=== PATIENT | female | born 1995 | race Caucasian/White ===

== ENCOUNTER 2020-02-22 08:32 | Emergency (ER) | payer OTHER, SELFPAY ==
[2020-02-22 08:37] VITALS: BP 126/75; PULSE 98; RESP 20; TEMP 36.6; O2SAT 100
--- NOTE | 2020-02-22 08:48 | ED.GENADULT ---
HPI - General Adult General Stated complaint: stomach pains/vomitting/diarrhea Time Seen by Provider: 02/22/20 08:48 Source: patient Mode of arrival: ambulatory Limitations: no limitations History of Present Illness HPI narrative: 24-year-old female patient presents to the [facility] with complaints of nausea, vomiting, diarrhea and abdominal pain that started abruptly last night. Patient states that she was running a fever last night at 100.3. Patient states that she took Tylenol and the fever went away. Patient states she has not been able to hold anything down since yesterday afternoon. Patient denies any chest pain or shortness of breath at this time. Patient states that she did recently deliver a baby vaginally about 1 month ago. Patient denies any complications with this. Patient unable to provide urine sample at this time. Related Data Allergies Allergy/AdvReac Type Severity Reaction Status Date / Time No Known Allergies Allergy Verified 08/14/19 18:36 Review of Systems Review of Systems: Narrative: CONSTITUTIONAL: Positive low-grade fever, denies chills, or sweats. EYES: Denies visual changes, redness, or discharge. ENT: Denies rhinorrhea, congestion, sore throat, or otalgia. CARDIOVASCULAR: Denies chest pain, palpitations, or edema. RESPIRATORY: Denies cough or dyspnea. GASTROINTESTINAL: Positive abdominal pain, nausea, vomiting, and diarrhea. GENITOURINARY: Denies dysuria or hematuria. SKIN: Denies rash or itching. MUSCULOSKELETAL: Denies back pain, joint pain, or myalgia. NEUROLOGIC: Denies headache, numbness, or weakness. PSYCHIATRIC: Denies anxiety or depression. [facility] Social History Social History Gender identity (if verbalized by the patient): Female Exam Narrative: Exam Narrative: GENERAL: Well-appearing, well-nourished, and in no acute distress. HEAD: Normocephalic, atraumatic. EYES: PERRLA and EOMI. ENT: Nares clear, no rhinorrhea or epistaxis. Mucous membranes moist. Mucous membranes appear pale. NECK: Supple. No lymphadenopathy CHEST: Clear to auscultation. No respiratory distress. HEART: Regular rate and rhythm. No murmur heard. Normal peripheral pulses. ABDOMEN: Soft, flat, nondistended. No guarding, rebound tenderness, or rigid. Patient has tenderness noted to the left lower quadrant on palpation. No pulsatilla masses. Decrease bowel sounds present in all four quadrants. No organomegaly. Negative Coe?s sign. No periumbicial tenderness. No Supra public tenderness or distension. Good femoral pulses bilaterally. No hernia noted. No scars or surface trauma. EXTREMITIES: Normal range of motion. No edema. SKIN: Warm, dry, no rash. NEURO: No focal deficits. Alert and oriented x3. Course Vital Signs Vital signs: Vital Signs Temperature 36.6 C 02/22/20 08:37 Pulse Rate 98 02/22/20 08:37 Respiratory Rate 20 02/22/20 08:37 Blood Pressure 126/75 02/22/20 08:37 Pulse Oximetry 100 02/22/20 08:37 Temperature 36.6 C 02/22/20 08:37 Pulse Rate 98 02/22/20 08:37 Respiratory Rate 20 02/22/20 08:37 Blood Pressure 126/75 02/22/20 08:37 Pulse Oximetry 100 02/22/20 08:37 Vital signs reviewed. Transfer Transfered to: [facility] [place] Transportation: Other (Private vehicle) Transfer rationale: Left lower quadrant abdominal pain, nausea, vomiting and diarrhea Accepting physician: Dr. Villalba Transfer comments: Called and spoke with Dr. Villalba at [facility] emergency department and gave her report on patient that we are sending over with left lower quadrant abdominal pain with nausea, vomiting, diarrhea that started yesterday. Patient reports low-grade fever yesterday currently afebrile. Patient did have a baby about 1 month ago vaginally with no complications. Dr. Kwan is aware the patient and accepts patient at this time. Medical Decision Making Differential Diagnosis Differential Diagnosis: Differen
== END 2020-02-22 09:00 | disposition short-term general hospital (02) ==
PROVIDERS: Emergency Provider Nurse Practitioner Family
DX: R10.32 Left lower quadrant pain (principal); R11.2 Nausea with vomiting, unspecified; R19.7 Diarrhea, unspecified
CPT/HCPCS: 99212; G0463

== ENCOUNTER 2020-07-04 12:53 | Emergency (ER) | payer OTHER, SELFPAY ==
[2020-07-04 12:58] VITALS: BP 133/91; PULSE 104; RESP 14; TEMP 37.6; O2SAT 100
[2020-07-04 13:05] VITALS: BP 133/91; PULSE 104; RESP 14; TEMP 37.6; O2SAT 100
--- NOTE | 2020-07-04 13:12 | ED.URI ---
HPI - URI/Sore Throat General Chief Complaint: Upper Respiratory Infection Stated Complaint: headache/sinus congestion Source: patient Mode of arrival: ambulatory Limitations: no limitations History of Present Illness HPI Narrative: Patient is a 24-year-old female who presents complaining of headache sinus congestion and pressure x1 and half weeks. She denies other symptoms. She denies known Covid exposure. She denies taking [id number] meds for relief. Related Data Home Medications Medication Instructions Recorded Confirmed [id number] 1 tablet PO DAILY 07/04/20 07/04/20 [] Allergies Allergy/AdvReac Type Severity Reaction Status Date / Time No Known Allergies Allergy Verified 07/04/20 13:03 Review of Systems Review of Systems: Narrative: CONSTITUTIONAL: Denies fever, chills, or sweats. EYES: Denies visual changes, redness, or discharge. ENT: Denies rhinorrhea, reports congestion, sinus pressure and headache CARDIOVASCULAR: Denies chest pain, palpitations, or edema. RESPIRATORY: Denies cough or dyspnea. GASTROINTESTINAL: Denies abdominal pain, nausea, vomiting, or diarrhea. GENITOURINARY: Denies dysuria or hematuria. SKIN: Denies rash or itching. MUSCULOSKELETAL: Denies back pain, joint pain, or myalgia. NEUROLOGIC: Denies numbness, dizziness, or weakness. PSYCHIATRIC: Denies anxiety or depression. [facility] Surgical History Surgical History History of placement of ear tubes S/P tympanostomy tube placement Social History Social History (Updated 07/04/20 @ 13:20 by EMI [place]) Smoking status: Former smoker Tobacco type: cigarettes Gender identity (if verbalized by the patient): Female Exam Narrative: Exam Narrative: GENERAL: Well-appearing, well-nourished, and in no acute distress. HEAD: Normocephalic, atraumatic. EYES: No redness or drainage. Conjunctiva are normal. ENT: Mucous membranes pink and moist. Nares clear. No rhinorrhea. TMs normal bilaterally. Throat normal. Uvula midline. Maxillary sinus tenderness with palpation NECK: AROM. Supple. No lymphadenopathy. CHEST: No respiratory distress. EXTREMITIES: Normal range of motion. SKIN: Warm, dry, no rash. NEURO: No focal deficits. Alert and oriented x3. Gait steady. PSYCH: Normal affect. No signs of depression or anxiety. Course Vital Signs Vital signs: Vital Signs Temperature 37.6 C 07/04/20 12:58 Pulse Rate 104 H 07/04/20 12:58 Respiratory Rate 14 07/04/20 12:58 Blood Pressure 133/91 H 07/04/20 12:58 Pulse Oximetry 100 07/04/20 12:58 Temperature 37.6 C 07/04/20 13:05 Pulse Rate 104 H 07/04/20 13:05 Respiratory Rate 14 07/04/20 13:05 Blood Pressure 133/91 H 07/04/20 13:05 Pulse Oximetry 100 07/04/20 13:05 Reviewed. Patient has been instructed to follow-up with her PCP regarding her blood pressure. MDM - URI/Sore Throat MDM Narrative Medical decision making narrative: Patient most likely has sinusitis. Patient to be started on Augmentin at this time. Patient also requesting Covid testing due to employment. Covid testing order sent. Patient is stable for discharge to home with outpatient follow-up as needed. Differential Diagnosis Differential diagnosis: Likely upper respiratory infection, sinusitis, viral infection, bronchitis and influenza Critical Care Time Critical Care Time Critical Care Time: No Discharge Plan Discharge Clinical Impression: Sinusitis Qualifiers: Sinusitis location: maxillary Chronicity: unspecified Qualified Code(s): J32.0 - Chronic maxillary sinusitis Patient Disposition: Home, Self-Care Condition: Stable Instructions: Antibiotic Form, Sinusitis (ED) Additional Instructions: Take antibiotics as directed. [facility] will also be calling you for Covid testing. Please quarantine as discussed. If you have chest pain, shortness of breath or increasin
== END 2020-07-04 13:39 | disposition home or self-care (01) ==
PROVIDERS: Emergency Provider Nurse Practitioner
DX: J32.0 Chronic maxillary sinusitis (principal); Z20.828 Contact with and (suspected) exposure to other viral communicable diseases; Z87.891 Personal history of nicotine dependence
CPT/HCPCS: 99213; G0463

== ENCOUNTER 2021-01-02 14:29 | Emergency (ER) | payer OTHER, SELFPAY ==
--- NOTE | ~2021-01-02 | XR_ITS ---
EXAMINATION: XR chest 2V DATE: 01/02/2021 15:04 INDICATION: Chest pain. TECHNIQUE: Frontal and lateral views of the chest were obtained. COMPARISON: None. FINDINGS: The chest demonstrates clear lungs without pneumonia, pleural effusion, or pneumothorax. Th e heart size is normal. IMPRESSION: 1. No acute cardiopulmonary disease. Reviewed, dictated and finalized at location A.
[2021-01-02 14:44] VITALS: BP 118/69; PULSE 102; RESP 16; TEMP 37.4; O2SAT 100
--- NOTE | 2021-01-02 14:44 | ED.GENADULT ---
HPI - General Adult General Chief complaint: Chest Pain Stated complaint: chest pains Time Seen by Provider: 01/02/21 14:44 Source: patient and RN notes reviewed Mode of arrival: ambulatory Limitations: no limitations History of Present Illness HPI narrative: 25-year-old female presents concern for midsternal chest pain that started last night. She also reports sore throat when swallowing. She denies any nasal congestion, rhinorrhea, headache, abdominal pain, nausea, vomiting. She reports she took Tylenol and Tums with no relief. She denies any cough, shortness of breath, radiating chest pain. She denies any injury or trauma. She denies any recent upper respiratory infection or cough. She denies any relieving or aggravating factors. MD complaint: Chest pain Related Data Home Medications Medication Instructions Recorded Confirmed No Home Medications 01/02/21 01/02/21 Allergies Allergy/AdvReac Type Severity Reaction Status Date / Time No Known Allergies Allergy Verified 07/04/20 13:03 Review of Systems Review of Systems: Narrative: CONSTITUTIONAL: Denies malaise, chills, sweats, or fever. EYES: Denies visual changes, redness, or discharge. ENT: Denies rhinorrhea, congestion, sinus pain, otalgia. Reports sore throat. CARDIOVASCULAR: Reports midsternal chest pain. Denies palpitations, or edema. RESPIRATORY: Denies cough or dyspnea. GASTROINTESTINAL: Denies abdominal pain, nausea, vomiting, diarrhea, bloody, or mucous stools. SKIN: Denies bruising, redness MUSCULOSKELETAL: Denies back pain, joint pain, or myalgia. NEUROLOGIC: Denies numbness, weakness, or headache. All systems reviewed & are unremarkable except as noted in HPI and below PMFSH Surgical History Surgical History History of placement of ear tubes S/P tympanostomy tube placement Social History Social History (Updated 07/04/20 @ 13:20 by EMI [place]) Smoking status: Former smoker Tobacco type: cigarettes Gender identity (if verbalized by the patient): Female Comments At time of signature, agree with nursing past medical, surgical, social and family history. There is no relevant family history pertinent to the presenting complaint Exam Narrative: Exam Narrative: GENERAL: Well-appearing, well-nourished, and in no acute distress. HEAD: Normocephalic, atraumatic. EYES: PERRLA, conjunctivae clear ENT: Nares clear, turbinates pink, no rhinorrhea or epistaxis. Mucous membranes moist. TM pearly varma with sharp light reflex bilaterally; no tragal tenderness. Oropharynx without erythema or lesions. Tonsils not enlarged and without exudate. NECK: Supple. No lymphadenopathy. No jugular venous distension. Carotids were easily palpable bilaterally. CHEST: No respiratory distress. Clear to auscultation. No bony deformities, no asymmetry. Speaks in full sentences. Reproducible midsternal chest pain upon sternal rub HEART: Regular rate and rhythm. No murmur heard. Normal peripheral pulses. SKIN: Warm, dry, no rash. NEURO: Alert and oriented x3. PSYCH: Tearful Course Course Emergency Course: Patient is aware of diagnosis, understands and agrees to treatment plan. Anticipatory guidance given. Patient agrees to follow-up as directed and is aware of reasons to seek care at the emergency department. Portions of this record may have been created with voice recognition software Vital Signs Vital signs: Vital Signs Temperature 99.3 F 01/02/21 14:44 Pulse Rate 102 H 01/02/21 14:44 Respiratory Rate 16 01/02/21 14:44 Blood Pressure 118/69 01/02/21 14:44 Pulse Oximetry 100 01/02/21 14:44 Temperature 99.3 F 01/02/21 14:44 Pulse Rate 102 H 01/02/21 14:44 Respiratory Rate 16 01/02/21 14:44 Blood Pressure 118/69 01/02/21 14:44 Pulse Oximetry 100 01/02/21 14:44 Reviewed. Medical Decision Making MDM Narrative Medical decision making narrative: No evidence o
== END 2021-01-02 15:18 | disposition home or self-care (01) ==
PROVIDERS: Emergency Provider Nurse Practitioner
DX: R07.89 Other chest pain (principal); Z87.891 Personal history of nicotine dependence
CPT/HCPCS: 71046; 87081; 87880; 99213; G0463

== ENCOUNTER 2021-01-06 10:43 | Emergency (ER) | payer OTHER, SELFPAY ==
--- NOTE | ~2021-01-06 | XR_ITS ---
EXAMINATION: XR chest 2V DATE: 01/06/2021 11:00 INDICATION: Shortness of breath, chest pain and cough TECHNIQUE: PA and lateral views of the chest were obtained. COMPARISON: Chest radiograph dated 01/02/2021 FINDINGS: The lungs remain clear with no focal airspace opacities, pulmonary edema, pleural effusion or pneumot horax. The cardiomediastinal silhouette is normal. IMPRESSION: 1. No acute cardiopulmonary disease. Reviewed, dictated and finalized at location A.
[2021-01-06 10:46] VITALS: BP 137/74; PULSE 107; RESP 20; TEMP 36.7; O2SAT 100
--- NOTE | 2021-01-06 10:51 | ECG_ITS ---
Measurements Intervals [place] Rate: 105 P: 82 ME: 146 QRS: 92 QRSD: 83 T: 55 QT: 340 QTc: 449 Interpretive Statements SINUS TACHYCARDIA POSSIBLE RIGHT ATRIAL ENLARGEMENT RIGHT AXIS DEVIATION BASELINE WANDER- II, III, AVL, AVF ABNORMAL ECG Electronically Signed On 01-06-2021 12:08:30 CDT by Eusebio Mckeon D.O.
[2021-01-06 10:52] VITALS: PULSE 107
[2021-01-06 10:53] VITALS: BP 130/80; PULSE 106; RESP 23; O2SAT 100
[2021-01-06 11:06] LABS: Basophils Percent Auto 0.8 % (0.2-1.2); Eosinophils Absolute Auto 0.1 K/mm3 (0-0.3); Eosinophils Percent Auto 1.5 % (0-4.4); Hemoglobin 11.7 g/dL (12.0-15.0); Immature Granulocyte Absolute 0.01 K/mm3 (0.00-0.031); Immature Granulocyte Percent A 0.2 % (0-0.5); Lymphocytes Absolute Auto 1.49 K/mm3 (0.9-3.2); Lymphocytes Percent Auto 31.6 % (18.3-44.2); Mean Corpuscular HGB Conc 31.6 g/dl (32-36); Mean Corpuscular Hemoglobin 28.1 pg (26-34); Mean Corpuscular Volume 88.9 fl (80-100); Monocytes Absolute Auto 0.3 K/mm3 (0.1-0.6); Neutrophils Absolute Auto 2.8 K/mm3 (1.3-6.7); Neutrophils Percent Auto 58.9 % (45.5-73.1); Platelet Count Result 169 k/mm3 (150-375); Red Blood Count 4.16 M/mm3 (4.2-5.4); Red Cell Distribution Width 13.7 % (11.5-14.5); White Blood Count 4.7 K/mm3 (4.5-10.0)
[2021-01-06 11:17] LABS: Partial Thromboplastin Time 24.2 SECONDS (22.3-36.8); Prothrombin Time 13.8 Seconds (11.1-14.7)
[2021-01-06 11:22] LABS: Anion Gap 6 mmol/L (8-16); Blood Urea Nitrogen 9 mg/dL (7-17); Calcium 9.5 mg/dL (8.4-10.2); Carbon Dioxide 27 mmol/L (22-30); Chloride 108 mmol/L (98-107); Estimated CRCL calculation 80 ml/min; Estimated Glomerular Filt Rate > 60; Glucose 96 mg/dL (65-105); Sodium 141 mmol/L (137-145)
[2021-01-06 11:33] LABS: Troponin I < 0.012 ng/mL (0.000-0.034)
[2021-01-06 11:38] VITALS: BP 119/71; PULSE 99; RESP 18; O2SAT 100
[2021-01-06 11:50] LABS: D Dimer 0.27 ug/mL (<0.48)
--- NOTE | 2021-01-06 12:45 | ED.GENADULT ---
HPI - General Adult General Chief complaint: Chest Pain Stated complaint: chest pain Time Seen by Provider: 01/06/21 10:58 Source: patient and RN notes reviewed Mode of arrival: ambulatory Limitations: no limitations History of Present Illness HPI narrative: Patient is a 25-year-old female with midsternal chest pain that began Friday was intermittent and has now become more persistent patient notes aching pain made worse with deep breathing denies any fever chills nausea vomiting or other complaints was seen last night had x-ray and EKG unremarkable discharged home patient on arrival to emergency department is in no distress patient has not taken anything for her symptoms patient does note vaping and this morning developed a cough but denies other URI symptoms Related Data Allergies Allergy/AdvReac Type Severity Reaction Status Date / Time No Known Allergies Allergy Verified 01/06/21 10:50 Review of Systems Review of Systems: All systems reviewed & are unremarkable except as noted in HPI and below PMFSH Surgical History Surgical History History of placement of ear tubes S/P tympanostomy tube placement Social History Social History Smoking status: Former smoker Tobacco type: cigarettes Gender identity (if verbalized by the patient): Female Exam Narrative: Exam Narrative: GENERAL: Well-appearing, well-nourished, and in no acute distress. HEAD: Normocephalic, atraumatic. EYES: PERRLA and EOMI. ENT: Nares clear, no rhinorrhea or epistaxis. Mucous membranes moist. CHEST: Clear to auscultation. No respiratory distress. No wheezes rales or rhonchi. Right substernal chest tenderness HEART: Regular rate and rhythm. No murmur heard. Normal peripheral pulses. ABDOMEN: Soft, nontender, nondistended EXTREMITIES: Normal range of motion. No edema. SKIN: Warm, dry, no rash. NEURO: No focal deficits. Alert and oriented x3. PSYCH: Normal mood and affect. Course Course Emergency Course: Patient in the room no distress no high risk changes in the evaluation felt appropriate for outpatient reevaluation ABCs and vital signs intact and stable Vital Signs Vital signs: Vital Signs Temperature 98.1 F 01/06/21 10:46 Pulse Rate 107 H 01/06/21 10:46 Respiratory Rate 20 05/22/21 10:46 Blood Pressure 137/74 01/06/21 10:46 Pulse Oximetry 100 01/06/21 10:46 Temperature 98.1 F 01/06/21 10:46 Pulse Rate 99 01/06/21 11:38 Respiratory Rate 18 01/06/21 11:38 Blood Pressure 119/71 01/06/21 11:38 Pulse Oximetry 100 01/06/21 11:38 Medical Decision Making MDM Narrative Medical decision making narrative: Patients EKGs and labs are without significant high risk changes. Cardiac risk factors were reviewed. Patient is felt likely to be low risk for ACS and reasonable for further risk stratification testing as an outpatient. Pain was not sudden or maximal in onset without tearing or ripping. quality. No other signs or symptoms to suggest aortic dissection. A low-risk Wells criteria is noted. PE is felt to be unlikely. No pneumonia or URI symptoms were seen on evaluation today. Patient is felt to b reasonable for continued evaluation as an outpatient. Vital Signs Vital Signs: Vital Signs Temperature 98.1 F 01/06/21 10:46 Pulse Rate 107 H 01/06/21 10:46 Respiratory Rate 20 01/06/21 10:46 Blood Pressure 137/74 01/06/21 10:46 Pulse Oximetry 100 01/06/21 10:46 Temperature 98.1 F 01/06/21 10:46 Pulse Rate 99 01/06/21 11:38 Respiratory Rate 18 01/06/21 11:38 Blood Pressure 119/71 01/06/21 11:38 Pulse Oximetry 100 01/06/21 11:38 Lab Data Result diagrams: 01/06/21 10:58 01/06/21 10:58 Labs: Lab Results 01/06/21 01/06/21 01/06/21 Range/Units 10:57 10:58 10:58 WBC 4.7 (4.5-10.0) K/mm3 RBC 4.16 L (4.2-5.4) M/mm3 Hgb 1
[2021-01-06 13:18] VITALS: BP 115/76; PULSE 92; RESP 23; O2SAT 100
== END 2021-01-06 13:22 | disposition home or self-care (01) ==
PROVIDERS: Emergency Medicine Emergency Medical Services; Emergency Provider Emergency Medicine
DX: R07.89 Other chest pain (principal); Z87.891 Personal history of nicotine dependence; R00.0 Tachycardia, unspecified; R94.31 Abnormal electrocardiogram [ECG] [EKG]
CPT/HCPCS: 36415; 71046; 80048; 84484; 85025; 85380; 85610; 85730; 93005; 99284

== ENCOUNTER 2021-07-19 18:49 | Emergency (ER) | payer OTHER, SELFPAY ==
--- NOTE | ~2021-07-19 | XR_ITS ---
EXAMINATION: XR foot RT min 3V DATE: 07/19/2021 19:13 INDICATION: Right foot injury. TECHNIQUE: 4 views of right foot were obtained. COMPARISON: None. FINDINGS: Bone alignment is normal. No fracture. Joint spaces are well maintained. IMPRESSION: 1. No fracture. Reviewed, dictated and finalized at location A. R DIESEL LOCOMOTIVE IMPRESSION: 1. No fracture.
--- NOTE | ~2021-07-19 | XR_ITS ---
EXAMINATION: XR ankle RT min 3V DATE: 07/19/2021 19:13 INDICATION: Right ankle injury and pain. TECHNIQUE: 4 views of right ankle were obtained. COMPARISON: None. FINDINGS: Bone alignment is normal. No fracture. Joint spaces are well maintained. IMPRESSION: 1. No fracture. Reviewed, dictated and finalized at location A. PICU IMPRESSION: 1. No fracture.
[2021-07-19 18:54] VITALS: BP 121/83; PULSE 106; RESP 16; TEMP 37.6; O2SAT 99
--- NOTE | 2021-07-19 18:54 | ED.LOWEXIN ---
HPI - Extremity Injury (Lower) General Chief Complaint: Extremity Injury, Lower Stated Complaint: right ankle injury Time Seen by Provider: 07/19/21 18:54 Source: patient and RN notes reviewed Mode of arrival: ambulatory Limitations: no limitations History of Present Illness HPI Narrative: Ba is a 25-year-old female patient who ambulated into the [facility] accompanied by a friend. Patient states 1 week ago she was at a hotel stood up and rolled her right ankle. Patient complains of pain to the right lateral ankle. Patient states she is used ibuprofen, ice, heat, with no relief. Patient states she has tried to rest it and not walk on it is much as possible MD complaint: ankle injury Related Data Home Medications Medication Instructions Recorded Confirmed sertraline 50 mg PO DAILY 07/19/21 07/19/21 Allergies Allergy/AdvReac Type Severity Reaction Status Date / Time No Known Allergies Allergy Verified 07/19/21 19:01 Review of Systems Review of Systems: Yes CONSTITUTIONAL: Denies body aches, fever, chills, or sweats. EYES: Denies visual changes, redness, or discharge. ENT: Denies rhinorrhea, congestion, sore throat, or otalgia. CARDIOVASCULAR: Denies chest pain, palpitations, or edema. RESPIRATORY: Denies cough or dyspnea. GASTROINTESTINAL: Denies abdominal pain, nausea, vomiting, or diarrhea. GENITOURINARY: Denies dysuria or hematuria. SKIN: Denies rash, itching, or wounds. MUSCULOSKELETAL: Denies back pain, + right ankle pain/swelling NEUROLOGIC: Denies headache, numbness, tingling, or weakness. PSYCH: Denies depression or anxiety. All systems reviewed & are unremarkable except as noted in HPI and below PMFSH Surgical History Surgical History History of placement of ear tubes S/P tympanostomy tube placement Social History Social History Smoking status: Former smoker Tobacco type: cigarettes Gender identity (if verbalized by the patient): Female Comments At time of signature, I have reviewed and agree with nursing past medical, surgical, social and family history unless otherwise noted. Please see nursing chart for further information. There is no relevant family history pertinent to the presenting complaint Exam Narrative: GENERAL: Well-appearing, well-nourished, and in no acute distress. HEAD: Normocephalic, atraumatic. EYES: EOMI. No redness or drainage. Conjunctivae normal. ENT: Mucous membranes pink and moist. Nares clear. No rhinorrhea. NECK: Normal AROM. Supple. CHEST: No respiratory distress. MUSCULOSKELETAL: No bony tenderness; minimal swelling right lateral malleolus,distal sensation and movement intact. EXTREMITIES: Normal range of motion. No edema. SKIN: Warm, dry, no rash. Capillary refill normal. Normal skin turgor. NEURO: No focal deficits. Alert and oriented x3. Gait steady. PSYCH: Normal affect. No signs of depression or anxiety. Course Vital Signs Vital signs: Vital Signs Temperature 37.6 C H 07/19/21 18:54 Pulse Rate 106 H 07/19/21 18:54 Respiratory Rate 16 07/19/21 18:54 Blood Pressure 121/83 07/19/21 18:54 Pulse Oximetry 99 07/19/21 18:54 Temperature 37.6 C H 07/19/21 18:54 Pulse Rate 106 H 07/19/21 18:54 Respiratory Rate 16 07/19/21 18:54 Blood Pressure 121/83 07/19/21 18:54 Pulse Oximetry 99 07/19/21 18:54 Reviewed MDM - Extremity Injury (Lower) MDM Narrative Medical decision making narrative: Impressions Ankle X-Ray 07/19/21 19:15 IMPRESSION: 1. No fracture. Foot X-Ray 07/19/21 19:17 IMPRESSION: 1. No fracture. Patient will be treated for right ankle sprain. Right ankle and foot xrays are negative, minimal swelling noted. Patient has ankle brace she will continue to wear. Differential Diagnosis Differential diagnosis: Likely ankle sprain and strain, fracture of toe and ankl
== END 2021-07-19 19:30 | disposition home or self-care (01) ==
PROVIDERS: Emergency Provider Nurse Practitioner Family
DX: S93.401A Sprain of unspecified ligament of right ankle, initial encounter (principal); S96.911A Strain of unspecified muscle and tendon at ankle and foot level, right foot, initial encounter; Z87.891 Personal history of nicotine dependence; X50.9XXA Other and unspecified overexertion or strenuous movements or postures, initial encounter; Y92.59 Other trade areas as the place of occurrence of the external cause
CPT/HCPCS: 73610; 73630; 99213; G0463

== ENCOUNTER 2021-08-27 16:49 | Emergency (ER) | payer OTHER, SELFPAY ==
--- NOTE | ~2021-08-27 | XR_ITS ---
EXAMINATION: XR chest 2V DATE: 08/27/2021 17:27 INDICATION: Persistent cough TECHNIQUE: PA and lateral views of the chest are obtained. COMPARISON: 01/06/2021 FINDINGS: The lungs are free of acute opacities. There is no pleural effusion or pneumothorax. The ca rdiomediastinal silhouette is normal. The visualized bones and soft tissues are unremarkable. IMPRESSION: 1. No acute cardiopulmonary abnormality. Reviewed, dictated and finalized at location F. [employer]
--- NOTE | 2021-08-27 16:53 | ED.URI ---
HPI - URI/Sore Throat General Chief Complaint: Upper Respiratory Infection Stated Complaint: Cough Time Seen by Provider: 08/27/21 16:53 Source: patient and RN notes reviewed History of Present Illness HPI Narrative: Patient is a 25-year-old female who presents the urgent care with complaints of a post COVID cough. Patient was positive for COVID on August 15 and has had a persistent cough since then. Patient denies of any fevers. States that she has mild shortness of breath on exertion. Patient has been producing some phlegm over the last couple days. States that she has been taking Delsym, Mucinex, NyQuil, DayQuil and Vicks. Denies of any chest pain. No other acute complaints. No acute distress noted. Patient read the plan of care. Some parts of this dictation were generated by voice recognition software and may contain typographical and/or grammatical inaccuracies. Related Data Home Medications Medication Instructions Recorded Confirmed sertraline 50 mg PO DAILY 07/19/21 08/27/21 Allergies Allergy/AdvReac Type Severity Reaction Status Date / Time No Known Allergies Allergy Verified 07/19/21 19:01 Review of Systems Review of Systems: CONSTITUTIONAL: Denies fever, chills, or sweats. EYES: Denies visual changes, redness, or discharge. ENT: Denies rhinorrhea, congestion, sore throat, or otalgia. CARDIOVASCULAR: Denies chest pain, palpitations, or edema. RESPIRATORY: Reports a persistent cough with intermittent dyspnea GASTROINTESTINAL: Denies abdominal pain, nausea, vomiting, or diarrhea. GENITOURINARY: Denies dysuria or hematuria. SKIN: Denies rash or itching. MUSCULOSKELETAL: Denies back pain, joint pain, or myalgia. NEUROLOGIC: Denies headache, numbness, or weakness. All other systems reviewed are negative, except as documented in HPI. [facility] Surgical History Surgical History History of placement of ear tubes S/P tympanostomy tube placement Social History Social History Smoking status: Former smoker Tobacco type: cigarettes Gender identity (if verbalized by the patient): Female Comments At the time of my signature, I reviewed and agree with the nursing past medical, surgical, social, and family history. There is no relevant family history pertinent to the patient complaint. Exam Narrative: GENERAL: This is a well-nourished, well-developed patient, in no apparent distress. HEAD: normocephalic, atraumatic. EYES: PERRL. Sclera clear/white. Vision is grossly intact. EARS: External ears normal, auditory canals clear and without drainage, TMs normal without perforation. Hearing grossly intact. NOSE: External nose normal with no obvious nasal discharge, nares without redness, no rhinorrhea. THROAT: Mucous membranes moist, posterior pharynx clear. Mild postnasal drainage NECK: Neck supple CARDIOVASCULAR: Regular rate and rhythm without murmurs, gallops, or rubs. RESPIRATORY: Slightly diminished right upper and lower with mild expiratory wheeze to the left upper SKIN: warm, intact with no suspicious lesions or rash, good texture and turgor. NEURO: awake, alert, and oriented to person, place and time. There were no obvious focal neurologic abnormalities. EXTREMITIES: No clubbing, cyanosis, or edema. Course Course Level of Care: Express Care Visit Vital Signs Vital signs: Vital Signs Temperature 99.4 F 08/27/21 16:55 Pulse Rate 100 08/27/21 16:55 Respiratory Rate 16 08/27/21 16:55 Blood Pressure 126/81 08/27/21 16:55 Pulse Oximetry 100 08/27/21 16:55 Temperature 99.4 F 08/27/21 16:55 Pulse Rate 100 08/27/21 16:55 Respiratory Rate 16 08/27/21 16:55 Blood Pressure 126/81 08/27/21 16:55 Pulse Oximetry 100 08/27/21 16:55 Reviewed MDM - URI/Sore Throat MDM Narrative Medical decision making narrative: Reviewed x-ray results with the patient. She is aware t
[2021-08-27 16:55] VITALS: BP 126/81; PULSE 100; RESP 16; TEMP 37.4; O2SAT 100
== END 2021-08-27 17:56 | disposition home or self-care (01) ==
PROVIDERS: Emergency Provider Nurse Practitioner Family
DX: R05.9 Cough, unspecified (principal); U09.9 Post COVID-19 condition, unspecified; Z87.891 Personal history of nicotine dependence
CPT/HCPCS: 71046; 99213; G0463

== ENCOUNTER 2021-09-30 12:10 | Emergency (ER) | payer OTHER, SELFPAY ==
--- NOTE | ~2021-09-30 | CT_ITS ---
EXAMINATION: CT abdomen pelvis w con INDICATION: Right lower quadrant pain TECHNIQUE: Computed tomographic images of the abdomen and pelvis were obtained after the administrati on of 100 cc of Omnipaque 350 intravenous contrast. The dose-length product (DLP) was 190.28 mGy-cm. Automated exposure control and iterative reconstruction technique were employed. COMPARISON: None available FINDINGS: There are airspace opacities in the left lower lobe. The heart size is normal. The liver, s pleen, pancreas, gallbladder, and adrenal glands are normal. The kidneys are unremarkable. The append ix is normal. No pathologically enlarged abdominal or pelvic lymph nodes are identified. There is no free intraperitoneal gas or evidence of bowel obstruction. A small amount of free fluid in the pelvis is likely physiologic. IMPRESSION: 1. No CT correlate for right lower quadrant pain. 2. Left lower lobe pneumonia. Reviewed, dictated and finalized at location F. KEN CUTTER
[2021-09-30 12:15] VITALS: BP 134/78; PULSE 98; RESP 16; TEMP 36.9; O2SAT 99
--- NOTE | 2021-09-30 12:53 | ED.ABDPAIN ---
HPI - Abdominal Pain General Chief Complaint: Abdominal Pain Stated Complaint: right sided abd pain Time Seen by Provider: 09/30/21 12:34 Source: patient Mode of arrival: ambulatory Limitations: no limitations History of Present Illness HPI narrative: Patient is a 25-year-old female complaining of right upper quadrant pain, 8 out of 10, sharp, nonradiating started 2 days ago. Patient states that she is currently on her menstrual cycle. Patient states that she usually has pain during her menstrual cycle but not this bad, she also has a history of ovarian cyst on that side. Patient denies any chest pain, shortness of breath, nausea, vomiting, diarrhea, urinary symptoms, fever or chills. Related Data Home Medications Medication Instructions Recorded Confirmed sertraline 50 mg PO DAILY 07/19/21 08/27/21 Allergies Allergy/AdvReac Type Severity Reaction Status Date / Time No Known Allergies Allergy Verified 07/19/21 19:01 Review of Systems Review of Systems: All systems reviewed & are unremarkable except as noted in HPI and below Constitutional: Constitutional: Denies body ache(s), Denies chills, Denies excessive sweating, Denies fatigue, Denies fever(s), Denies headache(s), Denies lethargy, Denies malaise, Denies weakness and Denies weight loss Eyes: Eyes: Denies blurry vision, Denies change in vision and Denies loss of vision ENT: Denies dizziness, Denies ear discharge, Denies headache(s), Denies lip swelling, Denies epistaxis, Denies nasal congestion, Denies neck pain, Denies throat swelling and Denies tongue swelling Cardiovascular: Cardiovascular: Denies chest pain, Denies chest pain at rest, Denies chest pain with activity, Denies diaphoresis, Denies rapid heart rate, Denies edema, Denies irregular heart rhythm, Denies lightheadedness, Denies palpitations, Denies dyspnea and Denies dyspnea on exertion Respiratory: Respiratory: Denies chest congestion, Denies cough, Denies hemoptysis, Denies dyspnea and Denies dyspnea on exertion Gastrointestinal: Gastrointestinal: Denies melena, Denies hematochezia, Denies diarrhea, Denies nausea, Denies vomiting and Denies hematemesis Musculoskeletal: Musculoskeletal: Denies abnormal gait, Denies deformity, Denies joint swelling, Denies limited range of motion, Denies neck pain and Denies numbness Neurologic: Denies Abnormal speech present, Denies abnormal gait, Denies confusion, Denies dizziness, Denies headache(s), Denies focal weakness, Denies loss of vision, Denies numbness, Denies Other visual disturbances, Denies Sensory deficit (Neuro) and Denies weakness Psychiatric: Psychiatric: Denies confusion, Denies depression, Denies auditory hallucinations, Denies homicidal ideation and Denies suicidal ideation Endocrine: Endocrine: Denies cold intolerance, Denies excessive sweating, Denies fatigue, Denies heat intolerance and Denies palpitations Hematologic/Lymphatic: Hematologic/Lymphatic: Denies easy bleeding and Denies easy bruising Allergic/Immunologic: Allergic/Immunologic: Denies lip swelling, Denies throat swelling and Denies tongue swelling PMFSH Surgical History Surgical History History of placement of ear tubes S/P tympanostomy tube placement Social History Social History Smoking status: Former smoker Tobacco type: cigarettes Gender identity (if verbalized by the patient): Female Comments Past medical history: None Exam Const: General: cooperative, healthy appearing, comfortable, no acute distress, well developed, alert and awake; No confusion Orientation/consciousness: oriented to person, oriented to place, oriented to time, patient oriented x3 and No confusion Limitations: no limitations HENMT: Head: normal to inspection, normocephalic and atraumatic Ears: hearing grossly normal bilaterally, TM normal on the right and TM normal on the left General
[2021-09-30] MEDS: KETOROLAC 30 MG/ML VIAL (*BKC) IV PUSH (13:05)
[2021-09-30] MEDS: SODIUM CHLORIDE 0.9% IV 1,000 ML 999 ML IV CONT (13:05)
[2021-09-30 13:22] LABS: Basophils Percent Auto 0.7 % (0.2-1.2); Eosinophils Absolute Auto 0.1 K/mm3 (0-0.3); Eosinophils Percent Auto 2.4 % (0-4.4); Hemoglobin 11.8 g/dL (12.0-15.0); Immature Granulocyte Absolute 0.01 K/mm3 (0.00-0.031); Immature Granulocyte Percent A 0.2 % (0-0.5); Lymphocytes Absolute Auto 1.47 K/mm3 (0.9-3.2); Lymphocytes Percent Auto 32.7 % (18.3-44.2); Mean Corpuscular HGB Conc 32.8 g/dl (32-36); Mean Corpuscular Hemoglobin 29.5 pg (26-34); Mean Platelet Volume 10.1 fl (7.4-10.4); Monocytes Absolute Auto 0.4 K/mm3 (0.1-0.6); Monocytes Percent Auto 7.8 % (2.6-8.5); Neutrophils Absolute Auto 2.5 K/mm3 (1.3-6.7); Neutrophils Percent Auto 56.2 % (45.5-73.1); Platelet Count Result 150 k/mm3 (150-375); Red Cell Distribution Width 12.8 % (11.5-14.5); White Blood Count 4.5 K/mm3 (4.5-10.0)
[2021-09-30 13:27] LABS: Alanine Aminotransferase 12 U/L (4-35); Alkaline Phosphatase 67 U/L (38-126); Anion Gap 7 mmol/L (8-16); Aspartate Amino Transferase 23 U/L (14-36); Bilirubin,Total 0.4 mg/dL (0.2-1.3); Blood Urea Nitrogen 8 mg/dL (7-17); Calcium 9.4 mg/dL (8.4-10.2); Carbon Dioxide 28 mmol/L (22-30); Chloride 103 mmol/L (98-107); Estimated CRCL calculation 116 ml/min; Estimated Glomerular Filt Rate > 60; Glucose 100 mg/dL (65-110); Lipase 107 U/L (23-300); Potassium 3.6 mmol/L (3.4-5.0); Sodium 138 mmol/L (137-145)
== END 2021-09-30 16:26 | disposition home or self-care (01) ==
PROVIDERS: Emergency Provider Emergency Medicine
DX: R10.11 Right upper quadrant pain (principal); Z87.891 Personal history of nicotine dependence; R91.8 Other nonspecific abnormal finding of lung field
CPT/HCPCS: 36415; 74177; 80053; 81025; 83690; 85025; 96361; 96374; 99284; J1885; J7030; Q9967

== ENCOUNTER 2023-05-13 13:08 | Emergency (ER) | payer OTHER, SELFPAY ==
--- NOTE | ~2023-05-13 | XR_ITS ---
EXAMINATION: XR chest 2V 05/13/2023 13:39 INDICATION: Cough for 2 weeks PROCEDURE: 2 view chest COMPARISON: 08/27/2021 FINDINGS: The lungs are clear. The cardiomediastinal silhouette is within normal limits. There are no pleural effusions. There is no pneumothorax suspected. IMPRESSION: 1: NO ACUTE CARDIOPULMONARY DISEASE. Reviewed, dictated and finalized at location L.
[2023-05-13 13:22] VITALS: BP 130/82; PULSE 118; RESP 16; TEMP 36.3; O2SAT 99
--- NOTE | 2023-05-13 13:53 | ED.GENADULT ---
HPI - General Adult General Chief complaint: Upper Respiratory Infection Stated complaint: Cough/Sore Throat Source: patient Mode of arrival: ambulatory Limitations: no limitations History of Present Illness HPI narrative: Patient presents for evaluation of sick symptoms for last week. She reports a nonproductive cough, mild shortness of breath, and right-sided ear discomfort. No fever, chills, nausea, vomiting or diarrhea. No recent sick contacts to her knowledge. She tried taking dayquil and over the counter cough and cold medication. She does use an electronic cigarette. Related Data Home Medications Medication Instructions Recorded Confirmed sertraline 50 mg tablet 50 mg PO DAILY 07/19/21 08/27/21 Allergies Allergy/AdvReac Type Severity Reaction Status Date / Time No Known Allergies Allergy Verified 05/13/23 13:24 Review of Systems Review of Systems: CONSTITUTIONAL: Denies fever, chills, or sweats. EYES: Denies visual changes, redness, or discharge. ENT: Reports right sided ear pain. Denies rhinorrhea, congestion, and sore throat CARDIOVASCULAR: Denies chest pain, palpitations, or edema. RESPIRATORY: Reports nonproductive cough and SOB GASTROINTESTINAL: Denies abdominal pain, nausea, vomiting, or diarrhea. GENITOURINARY: Denies dysuria or hematuria. SKIN: Denies rash or itching. MUSCULOSKELETAL: Denies back pain, joint pain, or myalgia. NEUROLOGIC: Denies headache, numbness, dizziness, or weakness. PSYCHIATRIC: Denies anxiety or depression. PMFSH Past Medical History Medical History POTS (postural orthostatic tachycardia syndrome) Surgical History Surgical History History of placement of ear tubes S/P tympanostomy tube placement Family History Family History Mother Family history non-contributory Social History Social History (Updated 05/13/23 @ 14:00 by EMI Matthews, ) Smoking status: Current every day smoker Tobacco type: e-cigarettes/vaping Gender identity (if verbalized by the patient): Female Exam Narrative: GENERAL: Well-appearing, well-nourished, and in no acute distress. HEAD: Normocephalic, atraumatic. EYES: PERRLA and EOMI. ENT: Nares clear, no rhinorrhea or epistaxis. Mucous membranes moist. Posterior pharyngeal erythema without exudate. Uvula is midline. Bilateral TMs pearly varma nonbulging NECK: Supple. No adenopathy or masses. No carotid bruits or JVD CHEST: Cough present on exam. Clear to auscultation. No respiratory distress. No wheezes rales or rhonchi HEART: Regular rate and rhythm. No murmur heard. Normal peripheral pulses. ABDOMEN: Soft, nontender, nondistended, normal active bowel sounds. EXTREMITIES: Normal range of motion. No edema. SKIN: Warm, dry, no rash. NEURO: No focal deficits. Alert and oriented x3. PSYCH: Normal mood and affect. Course Course Emergency Course: This is a 27-year-old female who presented for evaluation of sick symptoms. Influenza A positive. Strep, COVID and CXR negative. Follow up with primary provider. Go to the ER for worsening symptoms. Tamiflu sent to pharmacy. Other over the counter medications for symptom management. Pt in agreement with plan of care. Level of Care: Express Care Visit Vital Signs Vital signs: Vital Signs Temperature 36.3 C L 05/13/23 13:22 Pulse Rate 118 H 05/13/23 13:22 Respiratory Rate 16 05/13/23 13:22 Blood Pressure 130/82 05/13/23 13:22 Pulse Oximetry 99 05/13/23 13:22 Oxygen Delivery Room Air 05/13/23 13:22 Temperature 36.3 C L 05/13/23 13:22 Pulse Rate 118 H 05/13/23 13:22 Respiratory Rate 16 05/13/23 13:22 Blood Pressure 130/82 05/13/23 13:22 Pulse Oximetry 99 05/13/23 13:22 Oxygen Delivery Room Air 05/13/23 13:22 Medical Decision Making
== END 2023-05-13 14:02 | disposition home or self-care (01) ==
PROVIDERS: Emergency Provider Nurse Practitioner
DX: J10.1 Influenza due to other identified influenza virus with other respiratory manifestations (principal); Z20.822 Contact with and (suspected) exposure to COVID-19; F17.290 Nicotine dependence, other tobacco product, uncomplicated
CPT/HCPCS: 71046; 87081; 87426; 87804; 87880; 99213; C9803; G0463

== ENCOUNTER 2023-08-29 18:28 | Emergency (ER) | payer OTHER, SELFPAY ==
--- NOTE | ~2023-08-29 | XR_ITS ---
EXAMINATION: XR chest 2V Exam Date/Time: 08/29/2023 18:45 [employer] HISTORY: COUGH,HX OF PNEUMONIA, DECREASED BREATH SOUNDS Comparison: 05/13/2023. RESULT: Lines, tubes, and devices: None. Lungs and pleura: Clear. Cardiomediastinal silhouette: Stable. Other: No acute osseous or upper abdominal finding. IMPRESSION: No acute cardiopulmonary process. Reviewed, dictated and finalized at location K. ER/[employer]
[2023-08-29 18:33] VITALS: BP 118/71; PULSE 122; RESP 16; TEMP 37.1; O2SAT 99
--- NOTE | 2023-08-29 18:38 | ED.URI ---
HPI - URI/Sore Throat General Chief Complaint: Upper Respiratory Infection Stated Complaint: cough/congestion Time Seen by Provider: 08/29/23 18:38 Source: patient Mode of arrival: ambulatory Limitations: no limitations History of Present Illness HPI Narrative: 27-year-old female presents with complaint of cough Since July 17. States that she was diagnosed with pneumonia And felt somewhat better after antibiotics but cough never resolved. started feeling bad again to 3 days ago with fatigue and body aches. shortness of breath with exertion. Taking [id number] medications without relief of symptoms. Never had follow-up chest x-ray after pneumonia. All systems reviewed and negative except as noted above. Related Data Allergies Allergy/AdvReac Type Severity Reaction Status Date / Time No Known Allergies Allergy Verified 08/29/23 18:39 Review of Systems Review of Systems: CONSTITUTIONAL: Denies fever, chills, or sweats. Reports fatigue EYES: Denies visual changes, redness, or discharge. ENT: reports rhinorrhea, congestion. Denies sore throat, or otalgia. CARDIOVASCULAR: Denies chest pain, palpitations, or edema. RESPIRATORY: reports cough and dyspnea with exertion. GASTROINTESTINAL: Denies abdominal pain, nausea, vomiting, or diarrhea. GENITOURINARY: Denies dysuria or hematuria. SKIN: Denies rash or itching. MUSCULOSKELETAL: Denies back pain, joint pain, or myalgia. NEUROLOGIC: Denies headache, numbness, or weakness. PSYCHIATRIC: Denies anxiety or depression. All other systems reviewed are negative, except as documented in HPI. [facility] Past Medical History Medical History POTS (postural orthostatic tachycardia syndrome) Surgical History Surgical History History of placement of ear tubes S/P tympanostomy tube placement Family History Family History Mother Family history non-contributory Social History Social History (Updated 05/13/23 @ 14:00 by EMI Matthews, DAVID) Smoking status: Current every day smoker Tobacco type: e-cigarettes/vaping Gender identity (if verbalized by the patient): Female Comments At time of signature, agree with nursing past medical, surgical, social and family history. There is no relevant family history pertinent to the presenting complaint. Exam Narrative: GENERAL: This is a well-nourished, well-developed patient, ill-appearing but no acute distress. HEAD: normocephalic, atraumatic. EYES: PERRL. Sclera clear/white. Vision is grossly intact. EARS: External ears normal, auditory canals clear and without drainage, TMs normal without perforation. Hearing grossly intact. NOSE: External nose normal with Clear nasal drainage. THROAT: Mucous membranes moist, posterior pharynx clear. NECK: Neck supple, non-tender without lymphadenopathy, masses or thyromegaly. CARDIOVASCULAR: Regular rate and rhythm without murmurs, gallops, or rubs. RESPIRATORY: Decreased lung sounds throughout all lung bragg. Breath sounds equal bilaterally. No wheezes, rales, or rhonchi. SKIN: warm, Dry, intact with no suspicious lesions or rash, good texture and turgor. NEURO: awake, alert, and oriented to person, place and time. There were no obvious focal neurologic abnormalities. EXTREMITIES: No joint tenderness, effusion, or edema noted. Course Course Level of Care: Express Care Visit Vital Signs Vital signs: Vital Signs Temperature 37.1 C 08/29/23 18:33 Pulse Rate 122 H 08/29/23 18:33 Respiratory Rate 16 08/29/23 18:33 Blood Pressure 118/71 08/29/23 18:33 Pulse Oximetry 99 08/29/23 18:33 Oxygen Delivery Room Air 08/29/23 18:33 Temperature 37.1 C 08/29/23 18:33 Pulse Rate 122 H 08/29/23 18:33 Respiratory Rate 16 08/29/23 18:33 Blood Pressure 118/71
== END 2023-08-29 19:12 | disposition home or self-care (01) ==
PROVIDERS: Emergency Provider Nurse Practitioner Family
DX: J06.9 Acute upper respiratory infection, unspecified (principal); Z20.822 Contact with and (suspected) exposure to COVID-19; F17.290 Nicotine dependence, other tobacco product, uncomplicated
CPT/HCPCS: 71046; 87426; 87804; 99213; G0463

== ENCOUNTER 2024-04-16 18:10 | Emergency (ER) | payer OTHER, SELFPAY ==
[2024-04-16 18:33] VITALS: BP 119/80; PULSE 90; RESP 18; TEMP 36.6; O2SAT 100
--- NOTE | 2024-04-16 18:54 | ED.URI ---
HPI - URI/Sore Throat General Chief Complaint: Upper Respiratory Infection Stated Complaint: positive for covid/worsening Time Seen by Provider: 04/16/24 18:50 Source: patient, RN notes reviewed and old records reviewed Mode of arrival: ambulatory Limitations: no limitations History of Present Illness HPI Narrative: 28 year old female who presents to [facility] care with complaints of testing positive for COVID on Friday and having increased symptoms.Patient reports that MD elicited complaint: other (ear pain) Related Data Allergies Allergy/AdvReac Type Severity Reaction Status Date / Time No Known Allergies Allergy Verified 08/29/23 18:39 Review of Systems Review of Systems: CONSTITUTIONAL: Denies malaise, chills, sweats, or fever. EYES: Denies visual changes, redness, or discharge. ENT: Reports rhinorrhea, congestion, sinus pain, otalgia and sore throat. CARDIOVASCULAR: Denies chest pain, palpitations, or edema. RESPIRATORY: Reports cough.? Denies dyspnea. GASTROINTESTINAL: Denies abdominal pain, nausea, vomiting, diarrhea SKIN: Denies rash or itching. MUSCULOSKELETAL: Reports myalgia. NEUROLOGIC: Denies headache. All systems reviewed & are unremarkable except as noted in HPI and below PMFSH Past Medical History Medical History POTS (postural orthostatic tachycardia syndrome) Surgical History Surgical History History of placement of ear tubes S/P tympanostomy tube placement Family History Family History Mother Family history non-contributory Social History Social History Smoking status: Current every day smoker Tobacco type: e-cigarettes/vaping Gender identity (if verbalized by the patient): Female Comments At time of signature, agree with nursing past medical, surgical, social and family history. There is no relevant family history pertinent to the presenting complaint Exam Narrative: GENERAL: Well-appearing, well-nourished, and in no acute distress. HEAD: Normocephalic EYES: PERRLA, conjunctivae clear ENT: Nares clear, turbinates edematous and erythematous, clear discharge. Mucous membranes moist.Right ear with purulent drainage in ear, Left TM pearly varma with dull light reflex bilaterally; no tragal tenderness. Oropharynx erythematous without lesions. Tonsils not enlarged and without exudate, no drooling, no hoarseness, no trismus, uvula midline. NECK: Supple. No lymphadenopathy CHEST: Clear to auscultation, breath sounds equal. No wheezing, rhonchi, rales, or stridor. No respiratory distress, speaks in full sentences.SAO2 100% on room air HEART: Regular rate and rhythm. No murmur heard. SKIN: Warm, dry, no rash. NEURO: Alert and oriented x3. PSYCH: Normal mood and affect Course Course Emergency Course: Patient is aware of diagnosis, understands and agrees to treatment plan.? Anticipatory guidance given.? Patient agrees to follow-up as directed and is aware of reasons to seek care at the emergency department. Portions of this record may have been created with voice recognition software Level of Care: Express Care Visit Vital Signs Vital signs: Vital Signs Temperature 36.6 C 04/16/24 18:33 Pulse Rate 90 04/16/24 18:33 Respiratory Rate 18 04/16/24 18:33 Blood Pressure 119/80 04/16/24 18:33 Pulse Oximetry 100 04/16/24 18:33 Oxygen Delivery Room Air 04/16/24 18:33 Temperature 36.6 C 04/16/24 18:33 Pulse Rate 90 04/16/24 18:33 Respiratory Rate 18 04/16/24 18:33 Blood Pressure 119/80 04/16/24 18:33 Pulse Oximetry 100 04/16/24 18:33 Oxygen Delivery Room Air 04/16/24 18:33 Reviewed MDM - URI/Sore Throat MDM Narrative Medical decision making narrative: Differential diagnosis consider
== END 2024-04-16 19:15 | disposition home or self-care (01) ==
PROVIDERS: Emergency Provider Registered Nurse; PCP Orthopaedic Surgery
DX: U07.1 COVID-19 (principal); H66.91 Otitis media, unspecified, right ear; F17.290 Nicotine dependence, other tobacco product, uncomplicated
CPT/HCPCS: 99213; G0463

== ENCOUNTER 2025-07-03 18:34 | Emergency (ER) | payer OTHER, SELFPAY ==
--- NOTE | 2025-07-03 18:36 | ED_ITS ---
HPI - URI/Sore Throat General Chief Complaint: Upper Respiratory Infection Stated Complaint: headache, ear pain, body aches, sore throat Time Seen by Provider: 07/03/25 18:52 Source: patient, RN notes reviewed and old records reviewed Mode of arrival: ambulatory Limitations: no limitations History of Present Illness HPI Narrative: 29-year-old female presents to the [facility] with 1 week history of headache at night, right ear pain, feeling feverish, sore throat body aches. Has been taking Tylenol and sinus medications with minimal relief. Treatments prior to arrival: acetaminophen and cold medicine Related Data Home Medications ?Medication ?Instructions ?Recorded ?Confirmed ?Last Taken ?Type sertraline 50 mg tablet mg 07/03/25 Unknown History Allergies Allergy/AdvReac Type Severity Reaction Status Date / Time No Known Allergies Allergy Verified 07/03/25 18:43 Review of Systems Review of Systems: All systems reviewed & are unremarkable except as noted in HPI and below Constitutional: Constitutional: Reports as per HPI, Reports body ache(s), Reports fever(s) and Reports headache(s) ENT: Reports as per HPI, Reports otalgia and Reports sore throat Cardiovascular: Cardiovascular: Reports no additional cardiovascular complaints, Denies chest pain and Denies dyspnea Respiratory: Respiratory: Reports no additional respiratory complaints, Denies chest congestion, Denies cough and Denies dyspnea Musculoskeletal: Musculoskeletal: Reports no additional musculoskeletal complaints Integumentary/Breasts: Skin/Breast: Reports system reviewed and no additional complaints, except as docu PMFSH Past Medical History Medical History POTS (postural orthostatic tachycardia syndrome) Surgical History Surgical History S/P tympanostomy tube placement History of placement of ear tubes Family History Family History Mother Family history non-contributory Social History Social History Smoking status: Current every day smoker Tobacco type: e-cigarettes/vaping Gender identity (if verbalized by the patient): Female Comments At the time of my signature, I reviewed and agree with the nursing past medical, surgical, social, and family history. There is no relevant family history pertinent to the patient complaint. Exam Const: General: cooperative, no acute distress, well developed, alert, tired appearing, uncomfortable and well nourished Nutritional Appearance: well nourished Orientation/consciousness: patient oriented x3 Limitations: no limitations HENMT: Head: normal to inspection Ears: hearing grossly normal bilaterally, external ears normal, TM's normal bilaterally, EAC's normal, mastoids normal and no periauricular adenopathy Mouth: Yes Normal oral and palatal mucosa present, Yes lip normal and Yes moist mucous membranes Throat: posterior oropharynx normal, uvula midline, abnormal tonsil bilateral erythema, exudates and hypertrophy 2+ and posterior oropharynx abnormal erythema; no edema and no exudates Eyes: General: appearance normal, both eyes and all related structures Alignment and Position: alignment normal Neck: Neck: normal visual inspection, full ROM, no lymphadenopathy and no meningeal signs Chest: Chest palpation & inspection: normal inspection of the chest Resp: Effort & Inspection: normal respiratory effort and able to speak in complete sentences Auscultation: clear to auscultation bilaterally, no crackles, no rales, no rhonchi and no wheezes Cardio: Rate: regular rate Skin: General skin exam: normal color and no rashes or lesions noted Neuro: General: patient oriented x3, gait normal, moves all extremities and no meningeal signs Cognition (Neuro): normal cognition Speech: normal speech Gait exam (Neuro): Normal gait present Extrem: General: normal to inspection, full ROM, capillary refill normal and normal gait Psych: Appearance: grossly normal and well kempt Mental Status: mental status grossly normal Speech and movement: Normal speech and movement present and Clear speech present Affect: normal affect Attitude: cooperative Course Course Level of Care: Express Care Visit Vital Signs Vital signs: Vital Signs Temperature 99.4 F 07/03/25 18:40 Pulse Rate 111 H 07/03/25 18:40 Respiratory Rate 18 07/03/25 18:40 Blood Pressure 128/81 07/03/25 18:40 Pulse Oximetry 100 07/03/25 18:40 Oxygen Delivery Room Air 07/03/25 18:40 Temperature 99.4 F 07/03/25 18:40 Pulse Rate 111 H 07/03/25 18:40 Respiratory Rate 18 07/03/25 18:40 Blood Pressure 128/81 07/03/25 18:40 Pulse Oximetry 100 07/03/25 18:40 Oxygen Delivery Room Air 07/03/25 18:40 Reviewed MDM - URI/Sore Throat MDM Narrative Medical decision making narrative: Patient sitting comfortably in exam room. Patient is nontoxic, mildly tachycardic, low-grade fever. Patient presents with 1 week history of sore throat, URI symptoms. Flu and COVID are negative. Strep positive. Patient is appropriate for outpatient treatment with antibiotics and close follow-up Discharge instructions reviewed with patient, as well as provided in writing per nursing staff. The instructions also include specific and strict return/GO TO THE ER as well as f/u information. All questions have been answered, and the patient deny any further questions with discharge and discharge plan. Some parts of this dictation were generated by voice recognition software and may contain typographical and/or grammatical inaccuracies. Differential Diagnosis Differential diagnosis: Likely upper respiratory infection, otitis media, sinusitis, viral infection, bronchitis, influenza and pharyngitis Lab Data Labs: Lab Results 07/03/25 Range/Units 18:44 POC Influenza A Ag Negative (Negative) POC Influenza B Ag Negative (Negative) POC SARS CoV-2 Ag Negative (Negative) POC Grp A Strep Screen Positive (Negative) review Critical Care Time Critical Care Time Critical Care Time: No Discharge Plan Discharge Clinical Impression: Strep pharyngitis Patient Disposition: Home Condition: Stable Instructions: Antibiotic Form, Strep Throat (ED) Additional Instructions: After 24-48 hours on antibiotics, Throw the toothbrush away, start using a new one. Please be sure to wash bed linens especially pillow cases. Repeat once you finish the antibiotics. Do not share drinks. Take Motrin alternating with Tylenol for pain and fever alternating every 4 hours. Increase fluids, avoid caffeine. Give plenty of water, juice, Gatorade, Pedialyte, ice pops in Jell-O Follow up with Primary provider if not getting better this week For new or worsening symptoms go directly to the emergency room Patient Language: Ugandan Prescriptions: New amoxicillin 875 mg tablet 875 mg PO Q12H Qty: 20 0RF No Action sertraline 50 mg tablet Follow-up/Referrals: PHYSICIAN NOT ON STAFF,NONSTAFF [Primary Care Provider] Stand Alone Forms: Work/School Release IP Time of Disposition: 19:02
[2025-07-03 18:40] VITALS: BP 128/81; PULSE 111; RESP 18; TEMP 37.4; O2SAT 100
--- OUTSIDE RECORDS SUMMARY | 2025-07-03 18:40 | XMS_ITS | Clinical Summary ---
Author Organization [facility] Address [address] [place] [address] Care Team Providers Care Career Technical Counselor Name Role Phone Natan Spears DIRECTOR PROJECT MANAGEMENT Primary Care Provider Allergies No known active allergies Medications ibuprofen (ADVIL,MOTRIN) 600 mg tabletIndicatio ns:Cramps Take 1 tablet (600 mg total) by mouth every 6 (six) hours as needed for pain 30 tablet 1 0 Active Additional Information Patient not taking.Reported on 04/28/2022 HYDROcodone-jessica taminophen (NORCO) 5-325 mg per tabletIndicatio ns:Pain Take 1 tablet by mouth every 4 (four) hours as needed for pain 20 tablet 0 Active Additional Information Patient not taking.Reported on 04/28/2022 HYDROcodone-jessica taminophen (NORCO) 5-325 mg per tabletIndicatio ns:Pain Take 1-2 tablets by mouth every 4 (four) hours as needed for pain Do not exceed 8 tablets/day. 15 tablet 0 Active Additional Information Patient not taking.Reported on 04/28/2022 sertraline (ZOLOFT) 50 mg tablet Take 50 mg by mouth daily 2 Active benzonatate (TESSALON) 200 mg capsuleIndicati ons:Viral URI with cough Take 1 capsule (200 mg total) by mouth 3 (three) times a day as needed for cough 30 capsule 4 Active Active Problems Problem Noted Date Diagnosed Date labor in third trimester without deliver y Surgical History Surgery Date Site/Laterality Comments MYRINGOTOMY W/ TUBES EAR SURGERY stent Medical History Medical History Date Comments Ovarian cyst Preeclampsia Pre-eclampsia 2016 Social History Tobacco Use Types Packs/Day Years Used Date Smoking Tobacco: Former Cigarettes Q uit: 03/18/2019 Smokeless Tobacco: Never Tobacco Cessation:Counseling Given: Not Answered Comments:quit 1 month ago Alcohol Use Standard Drinks/Week Comments Yes 0 (1 standard drink = 0.6 oz pur e alcohol) socially Personal Safety Answer Date Recorded Getting School Help Needed Not on file 10/30 Comments Unknown Sex and Gender Information Value Date Recorded Sex Assigned at Not on file Legal Sex Female 8:41 AM MANAGER OF INVESTIGATIONS Gender Identity Not on file Sexual Orientation Not on file Obstetrics History Para Term AB IAB SAB Ectopic Multiple Livin g Live Births 2 2 1 1 0 2 2 Date Outcome GA Total Labor Labor/2nd/3rd Weight Sex Type Anes PTL Marcela A1 A5 Name Clin 2016 35w 0d M Vag-S pont None Y Livin g Dr. Bueno Complications:Pre eclampsia Delivery Location:[facility] 2019 Term 39w 0d 3h 30m 2h 48m/0h 29m/0h 13m 3.04 kg (6 lb 11.2 oz) F Vag-S pont Epidur al N Livin g 9 9 DARIUSZ, GIRLA Eliot Anaya MD Complications:None Delivery Location:[facility] Last Filed Vital Signs Vital Sign Reading Time Taken Comments Blood Pressure 112/70 02/03/2024 6:42 PM CDT Pulse 114 02/03/2024 6:42 PM CDT Temperature 36.8 C (98.3 F) 02/03/2024 6:42 PM CDT Respiratory Rate 16 02/03/2024 6:42 PM CDT Oxygen Saturation 98% 02/03/2024 6:42 PM CDT Inhaled Oxygen Concentration - - Weight 55.8 kg (123 lb) 02/03/2024 6:42 PM CDT Height 172.7 cm (5' 8) 02/03/2024 6:42 PM CDT Body Mass Index 18.7 02/03/2024 6:42 PM CDT Plan of Treatment Health Maintenance Due Date Last Done Comments Cervical Cancer Screening 1996 Depression Screening 1996 Hepatitis C Screening 1996 Regular Well Visit/Exam 18-64 2014 Covid-19 Vaccine ( season) 2025 12/22/2020, 10/31/2020 Influenza Vaccine (#1) 2025 05/14/2021, 2012 DTaP/Tdap/Td Vaccine (8 - Td or Tdap) 12/20/2029 12/21/2019, 06/29/2017, 04/01/2007, Additional history exists Hepatitis B Screening Completed 10/13/1997, 997 Varicella Vaccines Completed 04/01/2007, 01/12/1998 HPV Vaccines Completed 10/28/2007, 04/01/2007 Pneumococcal vaccine <65 Aged Out No longer eligible based on patient's age to complete this topic Insurance [facility] [place] MEDICAID [facility] IDPA AETNA [facility] Advance Directives For more information, please contact: [phone] * Full Code (Latest Code Status on File) Date Activated Date Inactivated Comments 01/21/2020 7:00 AM 01/22/2020 8:08 PM * Full Code Date Activated Date Inactivated Comments 01/21/2020 7:00 AM 01/21/2020 7:00 AM Full CPR in ca se of cardiopulmonary arrest * Full Code Date Activated Date Inactivated Comments 01/21/2020 3:00 AM 01/21/2020 7:00 AM Full CPR in ca se of cardiopulmonary arrest * Full Code Date Activated Date Inactivated Comments 12/16/2019 12:50 AM 12/18/2019 8:16 PM * Full Code Date Activated Date Inactivated Comments 12/15/2019 7:02 PM 12/16/2019 12:50 AM Full CPR in case of cardiopulmonary arrest Care Teams Career Technical Counselor Relationship Specialty Start Date End Date Natan Spears NP [address] [address] PCP - General Nurse Practitioner 05/16/22
--- OUTSIDE RECORDS SUMMARY | 2025-07-03 18:40 | XMS_ITS | Clinical Summary ---
Author Organization [facility] Address [address] [place] [address] Phone Care Team Providers Care Brisket Puller Name Role Phone Unavailable Primary Care Provider Unavailabl e Allergies No known active allergies Medications No known medications Social History Tobacco Use Types Packs/Day Years Used Date Smoking Tobacco: Never Smokeless Tobacco: Never Tobacco Cessation:Counseling Given: Not Answered Alcohol Use Standard Drinks/Week Comments Yes 0 (1 standard drink = 0.6 oz pur e alcohol) Feeling Safe Answer Date Recorded Are you in a relationship wi th someone who hurts you emotionally and/or physically? No 07/17/2023 Comments No Sex and Gender Information Value Date Recorded Sex Assigned at Not on file Legal Sex Female 8:18 PM CANDLE MOLDER Gender Identity Not on file Sexual Orientation Not on file Last Filed Vital Signs Vital Sign Reading Time Taken Comments Blood Pressure 105/71 07/18/2023 12:57 AM CANDLE MOLDER Pulse 93 07/18/2023 12:57 AM CANDLE MOLDER Temperature 36.8 C (98.2 F) 07/18/2023 12:57 AM CANDLE MOLDER Respiratory Rate 16 07/18/2023 12:57 AM CANDLE MOLDER Oxygen Saturation 97% 07/18/2023 12:57 AM CANDLE MOLDER Inhaled Oxygen Concentration - - Weight 56.7 kg (125 lb) 07/17/2023 8:29 PM CANDLE MOLDER Height 172.7 cm (5' 8) 07/17/2023 8:29 PM CANDLE MOLDER Body Mass Index 19.01 07/17/2023 8:29 PM CANDLE MOLDER Plan of Treatment Health Maintenance Due Date Last Done Comments DTAP/TDAP/TD VACCINES (1 - Tdap) 12/27/2015 HEPATITIS B VACCINES (1 of 3 - 19+ 3-dose series) 12/16 CERVICAL CANCER SCREENING 2017 HPV/Cotest (21-29) 2017 PAP SMEAR 2017 HPV VACCINES (1 - 3-dose SCDM series) 12/27/2023 INFLUENZA VACCINE (#1) 2025 Insurance [facility]
--- OUTSIDE RECORDS SUMMARY | 2025-07-03 18:40 | XMS_ITS | Clinical Summary ---
Author Organization [facility] Address [address] [place] [address] Phone Care Team Providers Care Industrial Equipment Wirer Name Role Phone Natan Spears APRN, STRAIGHTENER [employer] Primary Care Pr ovider Provider, None Unavailable Unavailable Allergies No known active allergies Medications sertraline (ZOLOFT) 50 MG TabletIndication s:Anxiety Take 1 Tablet by mouth daily. 90 Tablet 1 11/02/2024 Active Active Problems Problem Noted Date Diagnosed Date Anxiety 05/14/2021 Immunizations Immunization Administration Dates Next Due Covid-19, Mrna, Lnp-s, Pf, 3 0 Mcg/0.3 Ml Dose (Scality) 12/22/2020,10/31/2020 DTAP VACCINE 04/29/2002 DTP Vaccine 07/12/1998,05/05/1997,02/25/1997 Hepatitis A Vaccine,unspecif ied Formulation 10/17/2008 Hepatitis A, Pediatric, Unsp ecified Formulation 03/31/2007 Hepatitis B Vaccine, Pediatric/adolescent 10/13/1997,01/02/1997 Hib Vaccine,unspecified Formulation 03/18,07/21/1997,05/05/1997,02/25 Human Papillomavirus (HPV) V accine, Bivalent 10/28/2007 Human Papillomavirus Vaccine (HPV), quadrivalent 04/01/2007 Inactivated Polio Vaccine 04/29/2002,05/05/1997, 02/25/1997 Influenza Vaccine Nasal 05/26/2013 Influenza Vaccine, Quadrivalent, PF 05/14/2021 MMR Vaccine 06/29/2017(Deferred: - patient does not need this vaccine. Patient is Rubella Immune.),04/29/2002,03/29/1998 Meningococcal Vaccine, Unspe cified Formulation 10/17/2008 OPV 07/21/1997 TDAP Vaccine 12/21/2019,06/29/2017,04/01/2007 Varicella Vaccine Live 04/01/2007,01/12/1998 Family History Medical History Relation Name Comments Diabetes Maternal Grandfather Hypertension Maternal Grandfather Diabetes Maternal Grandmother Labor Mother Relation Name Status Comments Maternal Grandfather Maternal Grandmother Mother Social History Tobacco Use Types Packs/Day Years Used Date Smoking Tobacco: Former Cigarettes 1 2.8 2 015 - 05/27/2017 Smokeless Tobacco: Never Tobacco Cessation:Counseling Given: No Alcohol Use Standard Drinks/Week Comments Not Currently 0 (1 standard drink = 0.6 oz pur e alcohol) Socially [employer] Util[employer] Answer Date Recorded In the past 12 months has e [employer], gas, oil, or water [employer] threatened to shut off services in your home? No 09/19/2023 Social Connection and Isolation Panel Answer Date Recorded In a typical week, how many times do you talk on the phone with family, friends, or neighbors? More than three times a week 09/19/2023 How often do you get togethe r with friends or relatives? Once a week 09/19/2023 How often do you attend formerly [facility] or latter-day services? Never 09/19/2023 Do you belong to any clubs o r organizations such as jain groups, unions, fraternal or athletic groups, or school groups? No 09/19/2023 How often do you attend meet ings of the clubs or organizations you belong to? Patient declined 09/19/2023 Are you , , di vorced, , never , or living with a partner? 09/19/2023 AUDIT-C Answer Date Recorded Q1: How often do you have a drink containing alc ohol? Monthly or less 09/19/2023 Q2: How many drinks containi ng alcohol do you have on a typical day when you are drinking? 1 or 2 09/19/2023 Q3: How often do you have si x or more drinks on one occasion? Never 09/19/2023 Overall Financial Resource Strain (CARDIA) Answe r Date Recorded How hard is it for you to pa y for the very basics like food, housing, medical care, and heating? Not hard at all 09/19/2023 PHQ-2 Answer Date Recorded Total Score - Questions 1-9 0 10/16 [facility] [place] of Occupat ional Health - Occupational Stress Questionnaire Answer Date Recorded Do you feel stress - tense, restless, nervous, or anxious, or unable to sleep at night because your mind is troubled all the time - these days? Very much 09/19/2023 Exercise Vital Sign Answer Date Recorde d On average, how many days pe r week do you engage in moderate to strenuous exercise (like a brisk walk)? 0 days Minutes of Exercise per Session Not on file 09/19/2023 Hunger Vital Sign Answer Date Recorded Within the past 12 months, y ou worried that your food would run out before you got the money to buy more. Never true 09/19/19 24 Within the past 12 months, t he food you bought just didn't last and you didn't have money to get more. Never true 09/19/2023 PRAPARE - Transportation Answer Date Re corded In the past 12 months, has l ack of transportation kept you from medical appointments or from getting medications? No 09/2023 In the past 12 months, has l ack of transportation kept you from meetings, work, or from getting things needed for daily living? No 09/19/2023 Housing Stability Vital Sign Answer Marcello e Recorded In the last 12 months, was t here a time when you were not able to pay the mortgage or rent on time? No 09/19/2023 In the last 12 months, how many places have you lived? 1 09/19/2023 In the last 12 months, was t here a time when you did not have a steady place to sleep or slept in a halfway (including now)? No 09/19/2023 Education Answer Date Recorded What is the highest level of school you have completed or the highest degree you have received? Associate degree: occupational, technical, or vocational program 03/21/2022 Sexually Active Control Partners Comments Not Currently Abstinence Male Comments No Sex and Gender Information Value Date Recorded Sex Assigned at Not on file Legal Sex Female 9:42 PM CDT Gender Identity Not on file Sexual Orientation Not on file Last Filed Vital Signs Vital Sign Reading Time Taken Comments Blood Pressure 128/72 11/02/2024 10:04 AM CDT Pulse 112 11/02/2024 10:04 AM CDT Temperature 36.2 C (97.2 F) 11/02/2024 10:04 AM CDT Respiratory Rate 16 11/02/2024 10:04 AM CDT Oxygen Saturation 100% 11/02/2024 10:04 AM CDT Inhaled Oxygen Concentration - - Weight 57.7 kg (127 lb 4.8 oz) 11/02/2024 10:04 AM CDT Height 172.7 cm (5' 8) 11/02/2024 10:04 AM CDT Body Mass Index 19.36 11/02/2024 10:04 AM CDT Plan of Treatment Health Maintenance Due Date Last Done Comments Hepatitis C Virus (HCV) Screening 1996 Hepatitis B Immunization (3 of 3 - 3-dose series) 12/08/1997 10/13/1997, 01/02/1997 Pap Smear 2017 Influenza Immunization (#1) 2025 05/14/2021, 1 SARS-COV-2 Immunization (3 - season) 2025 12/22/2020, 10/31/2020 DTaP/Tdap/Td Immunization (8 - Td or Tdap) 12/20/2029 12/21/2019, 06/29/2017, 04/01/2007, Additional history exists Respiratory Syncytial Virus (RSV) Immunization (Adult) (1 - 1-dose 75+ series) 12/27/2071 Human Papillomavirus (HPV) Immunization Completed 10/28/2007, 04/01/2007 Meningococcal Immunization (ACWY) Aged Out 10/17/2008 No longer eligible based on patient's age to complete this topic Pneumococcal Immunization Combined Aged Out No longer eligible based on patient's age to complete this topic Rotavirus Immunization Aged Out No lo nger eligible based on patient's age to complete this topic Insurance MEDICAID AETNA [facility] [address] [place] [id number] [address] [place] [address] Advance Directives * Full Code (Latest Code Status on File) Date Activated Date Inactivated Comments 06/27/2017 12:40 PM 06/29/2017 7:51 PM CPR-Full Treatment: FULL ARREST: Attempt Resuscitation/CPR wit intubation and mechanical ventilation. PRE-ARREST: Use entire range of life support measures to stabilize the patient. Care Teams Industrial Equipment Wirer Relationship Specialty Start Date End Date Natan Spears, TAILINGS WORKER, STRAIGHTENER [employer]UN [employer]S #[address] [address] PCP - General Advanced Practice Nurse 01/08/21 Provider, None [place] 01/08/21
[2025-07-03 18:53] LABS: EDSTREPNEGPOS1 Positive (Negative)
[2025-07-03 19:03] LABS: EDCOVIDSCREEN Negative (Negative); EDINFLUASCREEN Negative (Negative); EDINFLUBSCREEN Negative (Negative)
== END 2025-07-03 19:05 | disposition home or self-care (01) ==
PROVIDERS: Emergency Provider Nurse Practitioner
DX: J02.0 Streptococcal pharyngitis (principal); Z20.822 Contact with and (suspected) exposure to COVID-19; F17.290 Nicotine dependence, other tobacco product, uncomplicated; G90.A Postural orthostatic tachycardia syndrome [POTS]
CPT/HCPCS: 87426; 87804; 87880; 99213; G0463

== ENCOUNTER 2025-08-04 10:20 | Emergency (ER) | payer OTHER, SELFPAY ==
[2025-08-04 10:42] VITALS: BP 117/75; PULSE 135; RESP 20; TEMP 36.2; O2SAT 100
--- OUTSIDE RECORDS SUMMARY | 2025-08-04 10:42 | XMS_ITS | Clinical Summary ---
Author Organization [facility] Address [address] [place] [address] Phone Care Team Providers Care Ingot Caster Name Role Phone Natan Spears APRN, GEOPHYSICAL MANAGER Primary Care Pr ovider Provider, None Unavailable Unavailable Allergies No known active allergies Medications sertraline (ZOLOFT) 50 MG TabletIndication s:Anxiety Take 1 Tablet by mouth daily. 90 Tablet 1 11/02/2024 Active Active Problems Problem Noted Date Diagnosed Date Anxiety 05/14/2021 Immunizations Immunization Administration Dates Next Due Covid-19, Mrna, Lnp-s, Pf, 3 0 Mcg/0.3 Ml Dose ([employer]) 12/22/2020,10/31/2020 DTAP VACCINE 04/29/2002 DTP Vaccine 07/12/1998,05/05/1997,02/25/1997 [...] = 0.6 oz pur e alcohol) Socially [employer] Utilities Answer Date Recorded In the past 12 months has e [employer], gas, oil, or water [employer] threatened to shut off services in your home? No 09/19/2023 Social Connection and Isolation Panel Answer Date Recorded In a typical week, how many times do you talk on the phone with family, friends, or neighbors? More than three times a week 09/19/2023 How often do you get togethe r with friends or relatives? Once a week 09/19/2023 How often do you attend [facility] or rastafari services? Never 09/19/2023 Do you belong to any clubs o r organizations such as yarsanism groups, unions, fraternal or athletic groups, or [...] Total Score - Questions 1-9 0 10/16 [facility] of Occupat ional Health - Occupational Stress [...] place to sleep or slept in a correction (including now)? No 09/19/2023 Education Answer Date [...] (Adult) (1 - 1-dose 75+ series) 12/27/2071 Varicella Immunization Completed 04/01/2007, 1997 Human Papillomavirus (HPV) Immunization Completed 10/28/2007, 04/01/2007 Meningococcal Immunization (ACWY) Aged Out 10/17/2008 No longer eligible based on patient's age to complete this topic Pneumococcal Immunization Combined Aged Out No longer eligible based on patient's age to complete this topic Rotavirus Immunization Aged Out No lo nger eligible based on patient's age to complete this topic Insurance MEDICAID AETNA [facility] [address] [place], [place] [id number] [employer] [address] [place] [address] Advance Directives * Full Code (Latest Code Status on File) Date Activated Date Inactivated Comments 06/27/2017 12:40 PM 06/29/2017 7:51 PM CPR-Full Treatment: FULL ARREST: Attempt Resuscitation/CPR wit intubation and mechanical ventilation. PRE-ARREST: Use entire range of life support measures to stabilize the patient. Care Teams Ingot Caster Relationship Specialty Start Date End Date Natan Spears, JACKSCREW WORKER, GEOPHYSICAL MANAGER #[address] [address] PCP - General Advanced Practice Nurse 01/08/21 Provider, None [place] 01/08/21
--- OUTSIDE RECORDS SUMMARY | 2025-08-04 10:42 | XMS_ITS | Clinical Summary ---
Author Organization [facility] Address [address] [place] [address] Care Team Providers Care Dry Janitor Name Role Phone Natan Spears SECURITY AND PRIVACY CONSULTANT Primary Care Provider Allergies No known active [...] on file Legal Sex Female 8:41 AM OUTSIDE CUTTER Gender Identity Not on file Sexual Orientation Not on file Obstetrics History Para Term AB IAB SAB Ectopic Multiple Livin g Live Births 2 2 1 1 0 2 2 Date Outcome GA Total Labor Labor/2nd/3rd Weight Sex Type Anes PTL Marcela A1 A5 Name Clin 2016 35w 0d M Vag-S pont None Y Livin g Dr. Bueno Complications:Pre eclampsia Delivery Location:[facility] 2019 Term 39w 0d 3h 30m 2h 48m/0h 29m/0h 13m 3.04 kg (6 lb 11.2 oz) F Vag-S pont Epidur al N Livin g 9 9 DARIUSZ, GIRLA Eliot Anaya MD Complications:None Delivery Location:[facility] Last Filed Vital Signs [...] this topic Insurance [facility] [place] MEDICAID [facility] IDPA AETNA [facility] Advance Directives For more information, please contact: [phone] * Full Code (Latest Code Status on [...] in case of cardiopulmonary arrest Care Teams Dry Janitor Relationship Specialty Start Date End Date Natan Spears NP [address] [address] PCP - General Nurse Practitioner 05/16/22
--- OUTSIDE RECORDS SUMMARY | 2025-08-04 10:42 | XMS_ITS | Clinical Summary ---
Author Organization [facility] Address [address] [place] [address] Phone Care Team Providers Care Verification Specialist Name Role Phone Unavailable Primary Care Provider [...] on file Legal Sex Female 8:18 PM CLERICAL RECEPTIONIST Gender Identity Not on file Sexual Orientation Not on file Last Filed Vital Signs Vital Sign Reading Time Taken Comments Blood Pressure 105/71 07/18/2023 12:57 AM CLERICAL RECEPTIONIST Pulse 93 07/18/2023 12:57 AM CLERICAL RECEPTIONIST Temperature 36.8 C (98.2 F) 07/18/2023 12:57 AM CLERICAL RECEPTIONIST Respiratory Rate 16 07/18/2023 12:57 AM CLERICAL RECEPTIONIST Oxygen Saturation 97% 07/18/2023 12:57 AM CLERICAL RECEPTIONIST Inhaled Oxygen Concentration - - Weight 56.7 kg (125 lb) 07/17/2023 8:29 PM CLERICAL RECEPTIONIST Height 172.7 cm (5' 8) 07/17/2023 8:29 PM CLERICAL RECEPTIONIST Body Mass Index 19.01 07/17/2023 8:29 PM CLERICAL RECEPTIONIST Plan of Treatment Health Maintenance Due Date Last Done Comments DTAP/TDAP/TD VACCINES (1 - Tdap) 12/27/2015 HEPATITIS B VACCINES (1 of 3 - 19+ 3-dose series) 12/16 CERVICAL CANCER SCREENING 2017 HPV/Cotest (21-29) 2017 PAP SMEAR 2017 INFLUENZA VACCINE (#1) 2025 HPV VACCINES (No Doses Required) Completed Insurance [facility]
[2025-08-04 11:04] LABS: EDSTREPNEGPOS1 Positive (Negative)
[2025-08-04 11:05] LABS: EDCOVIDSCREEN Negative (Negative); EDINFLUASCREEN Negative (Negative); EDINFLUBSCREEN Negative (Negative)
[2025-08-04] MEDS: ONDANSETRON HCL ODT 4 MG TABLET SUBLINGUAL (11:23)
--- NOTE | 2025-08-04 11:32 | ED.NAVMDI ---
HPI - Nausea/Vomiting/Diarrhea General Chief complaint: Upper Respiratory Infection Stated complaint: Vomiting/diarrhea/sore throat Time Seen by Provider: 08/04/25 11:15 Source: patient and RN notes reviewed Mode of arrival: ambulatory Limitations: no limitations History of Present Illness HPI Narrative: 29-year-old female Presents Express Care complaining of nausea, vomiting, diarrhea, sore throat for to days. Patient reports having abdominal cramping. Patient denies any abdominal pain, fevers, body aches, chills. Patient last vomited approximately 30 minutes ago. Patient has been able to keep some fluids after each vomiting. Patient reports brown watery diarrhea. Patient denies any blood or mucus in stools. Patient has not tried any [id number] for relief. Patient denies recent travel outside the country. Related Data Allergies Allergy/AdvReac Type Severity Reaction Status Date / Time No Known Allergies Allergy Verified 08/04/25 10:50 Review of Systems Review of Systems: CONSTITUTIONAL: Denies fever, chills, body aches, or sweats. EYES: Denies visual changes, redness, or discharge. ENT: Denies rhinorrhea, congestion, or otalgia. Positive for sore throat CARDIOVASCULAR: Denies chest pain, palpitations, or edema. RESPIRATORY: Denies cough or dyspnea. GASTROINTESTINAL: Denies abdominal pain, bloody stools, hematochezia. Positive for nausea, vomiting, or diarrhea. GENITOURINARY: Denies dysuria or hematuria. SKIN: Denies rash or itching. MUSCULOSKELETAL: Denies back pain, joint pain, or myalgia. NEUROLOGIC: Denies headache, numbness, or weakness. PSYCHIATRIC: Denies anxiety or depression. All other systems reviewed are negative, except as documented in HPI. [facility] Past Medical History Medical History POTS (postural orthostatic tachycardia syndrome) Surgical History Surgical History S/P tympanostomy tube placement History of placement of ear tubes Family History Family History Mother Family history non-contributory Social History Social History Smoking status: Current every day smoker Tobacco type: e-cigarettes/vaping Gender identity (if verbalized by the patient): Female Exam Narrative: GENERAL: This is a well-nourished, well-developed adult, in no apparent distress. They are non ill-appearing, nontoxic appearing. HEAD: normocephalic, atraumatic. EYES: Sclera clear/white. Vision is grossly intact. EARS: External ears normal, auditory canals clear and without drainage, TMs without erythema or perforation. Hearing grossly intact. NOSE: External nose normal with no obvious nasal discharge, nasal turbinates without redness, no rhinorrhea. THROAT: Mucous membranes moist, posterior pharynx erythematous. Uvula is midline. NECK: Neck supple, non-tender without lymphadenopathy, masses or thyromegaly. CARDIOVASCULAR: Tachycardic rate and rhythm without murmurs, gallops, or rubs. RESPIRATORY: Clear to auscultation. Breath sounds equal bilaterally. No wheezes, rales, or rhonchi. GASTROINTESTINAL: Abdomen soft, epigastric tenderness to palpation., nondistended. Bowel sounds are active. No hepato-splenomegaly, or palpable masses. No guarding or rigidity. No rebound tenderness. SKIN: warm, Dry, intact with no suspicious lesions or rash, good texture and turgor. NEURO: awake, alert, and oriented to person, place and time. There were no obvious focal neurologic abnormalities. EXTREMITIES: No joint tenderness, effusion, or edema noted. BACK: Nontender without deformity. No CVA tenderness. Course Course Level of Care: Express Care Visit Vital Signs Vital signs: Vital Signs Temperature 97.2 F L 08/04/25 10:42 Pulse Rate 135 H 08/04/25 10:42 Respiratory Rate 20 08/04/25 10:42 Blood Pressure 117/75 08/04/25 10:42 Pulse Oximetry 100 08/04/25 10:42 Oxygen Delivery Room Air 08/04/25 10:42 Temperature 97.2 F L 08/04/25 10:42 Pulse Rate 135 H 08/04/25 10:42 Respiratory Rate 20 08/04/25 10:42 Blood Pressure 117/75 08/04/25 10:42 Pulse Oximetry 100 08/04/25 10:42 Oxygen Delivery Room Air 08/04/25 10:42 [facility] MDM Narrative Medical decision making narrative: Rapid strep is positive. Negative COVID in flu. Patient may also have an underlying gastroenteritis. Will treat with Augmentin. She given doses Zofran for vomiting. Patient reports feeling better. Will send patient home on Zofran. No peritoneal findings. Patient is tachycardic, she is nontoxic appearing, no apparent distress. Moist mucous membranes. Discussed supportive care Discussed physical exam findings. Advised supportive measures and signs/symptoms to go to the ER. Pt is appropriate for outpt treatment and f/u. Differential Diagnosis Differential Diagnosis: Differential diagnostic considerations for upper respiratory infection include upper respiratory infection, croup, otitis media, sinusitis, viral infection, bronchitis, influenza, pharyngitis, strep, uvulitis, gastritis, gastroenteritis, colitis. Lab Data [facility] Lab Attestation statement: I personally reviewed the patient's lab results. Labs: Lab Results 08/04/25 08/04/25 Range/Units 10:41 11:03 POC Influenza A Ag Negative (Negative) POC Influenza B Ag Negative (Negative) POC SARS CoV-2 Ag Negative (Negative) POC Grp A Strep Screen Positive (Negative) Discharge Plan Discharge Clinical Impression: Gastroenteritis Pharyngitis Qualifiers: Pharyngitis/tonsillitis etiology: streptococcus Qualified Code(s): J02.0 - Streptococcal pharyngitis Patient Disposition: Home Condition: Stable Instructions: Antibiotic Form, Strep Throat (ED), Gastroenteritis (ED) Additional Instructions: You tested positive for strep throat. ?Please take the Augmentin as prescribed until gone. Take the Augmentin with food it may cause GI upset. You will be contagious for 24 hours after starting the medication. ?After 24 hours on antibiotics throw tooth brush away and start using a new one. Wash your sheets and cup/water bottle that is used daily. Do not share drinks. Take Tylenol or Ibuprofen as needed for pain or fever, follow instructions on the bottle. Rest and stay hydrated. ? It is likely you also have a viral gastroenteritis. This is normally a self-limiting condition or resolve within 24-72 hours. However sometimes symptoms may linger on up to 7 days. It is recommended not to take anything for the diarrhea and allow the diarrhea to run its course. If the diarrhea persist and you feeling better, you may take Pepto-Bismol as needed to help control the diarrhea. Recommend hydration with plenty of fluids electrolyte supplementation such as Pedialyte. Follow-up PCP in 3-5 days. You may take Zofran as needed for nausea or vomiting. If Your unable to keep anything down, he developed abdominal pain, fevers, uncontrollable diarrhea, breathing problems, chest pains, concerns of dehydration, or any other concerns please go to the ER immediately. Patient Language: Swazi Prescriptions: New ondansetron 4 mg tablet,disintegrating 4 mg PO Q8H PRN (Reason: nausea and vomiting) Qty: 12 0RF amoxicillin-pot clavulanate 875-125 mg tablet 1 tablet PO Q12H 10 Days Qty: 20 0RF Follow-up/Referrals: UNKNOWN,DOCTOR [Primary Care Provider] Stand Alone Forms: Work/School Release IP Time of Disposition: 11:23
== END 2025-08-04 11:34 | disposition home or self-care (01) ==
DX: K52.9 Noninfective gastroenteritis and colitis, unspecified (principal); J02.0 Streptococcal pharyngitis; Z20.822 Contact with and (suspected) exposure to COVID-19; F17.290 Nicotine dependence, other tobacco product, uncomplicated; G90.A Postural orthostatic tachycardia syndrome [POTS]
CPT/HCPCS: 87426; 87804; 87880; 99213; A9270; G0463